=== PATIENT | female | born 1990 | race Caucasian/White ===

== ENCOUNTER → 2024-12-01 11:55 | Outpatient (REF) | payer BC, SELFPAY ==
[2024-12-01 14:32] LABS: % Basophils 0.2 % (0-2); % Eosinophils 0.8 % (0-6); % Immature Granulocytes 0.6 % (0-0.5); % Lymphocytes 19.1 % (20.5-51.1); % Monocytes 5.2 % (1.7-9.3); % Neutrophils 74.1 % (42.2-75.2); Absolute Eosinophils 0.1 10^3/uL (0-0.7); Absolute Immature Granulocytes 0.1 10^3/uL (0-0.05); Absolute Lymphocytes 1.9 10^3/uL (1.2-3.4); Absolute Monocytes 0.5 10^3/uL (0.1-0.6); Absolute Neutrophils 7.5 10^3/uL (1.4-6.5); Hemoglobin 11.2 g/dL (12.0-16.0); Mean Corp Hgb Conc. 32.9 g/dL (33.0-37.0); Mean Corpuscular Hgb 30.5 pg (27.0-31.0); Mean Corpuscular Volume 92.6 fL (81.0-99.0); Mean Platelet Volume 10.1 fL (7.4-10.4); Nucleated Red Blood Cells % 0 %; Platelet Count 167 10^3/uL (130-400); Red Blood Cell Count 3.67 10^6/uL (4.20-5.40); White Blood Cell Count 10.2 10^3/uL (4.8-10.8)
[2024-12-01 15:13] LABS: 1 Hour after 50gm 82 mg/dl
== END ==
LOC: REG 11:55
PROVIDERS: ATTENDING PHYSICIAN Obstetrics & Gynecology; FAMILY PHYSICIAN Student in an Organized Health Care Education/Training Program
DX: Z34.93 Encounter for supervision of normal pregnancy, unspecified, third trimester (principal)
CPT/HCPCS: 36415; 82950; 85025; 86780

== ENCOUNTER 2025-02-23 07:06 | Inpatient (IN) | payer BC, SELFPAY ==
[2025-02-23 07:13] VITALS: BP 137/61; BMI 24.4
[2025-02-23 07:51] LABS: Hematocrit 32.3 % (37.0-47.0); Hemoglobin 10.9 g/dL (12.0-16.0); Mean Corp Hgb Conc. 33.7 g/dL (33.0-37.0); Mean Corpuscular Volume 86.1 fL (81.0-99.0); Platelet Count 150 10^3/uL (130-400); Red Cell Dist. Width 13.9 % (11.5-14.5)
[2025-02-23 09:52] LABS: Cord VBG B.E. - POC -2.1 mmol/L; Cord VBG HCO3 - POC 26 mmol/L; Cord VBG pCO2 - POC 58 mmHg; Cord VBG pH - POC 7.26; Cord VBG pO2 - POC < 18 mmHg
[2025-02-23] MEDS: TORADOL 15 MG IV ×3 (10:52→22:23)
[2025-02-23] MEDS: COLACE 100 MG PO (20:15)
[2025-02-23] MEDS: FLUSH (NSS) 2 FLUSH IV (22:25)
[2025-02-24] MEDS: TORADOL 15 MG IV (03:31)
[2025-02-24] MEDS: FLUSH (NSS) 3 FLUSH IV (03:33)
[2025-02-24 04:15] LABS: Hematocrit 28.6 % (37.0-47.0); Hemoglobin 9.6 g/dL (12.0-16.0); Mean Corp Hgb Conc. 33.6 g/dL (33.0-37.0); Mean Corpuscular Volume 86.1 fL (81.0-99.0); Platelet Count 145 10^3/uL (130-400); Red Cell Dist. Width 13.9 % (11.5-14.5)
--- NOTE | 2025-02-24 08:30 | W.PN.ANS.POP ---
Anesthesia Post Operative
- Anesthesia Post Op Note
Vital Signs Stable-See Nursing Note: Yes
Airway Patent: Yes
Adequate Pain Control: Yes
Change in Mental Status: No
Current Postoperative Nausea & Vomiting: No
Anesthesia Complications: No
General Anesthetic Recall: No
Unplanned Admission: No
Post Op Hydration Adequate: Yes
- -
Pt awake and alert with no anesthesia related c/o at time of post op visit.
[2025-02-24] MEDS: PRENATAL PLUS 1 TABLET PO (08:38)
[2025-02-24] MEDS: COLACE 100 MG PO ×2 (08:38→20:00)
[2025-02-24] MEDS: TYLENOL 650 MG PO ×3 (08:38→21:13)
[2025-02-24] MEDS: MOTRIN 600 MG PO ×3 (09:12→21:14)
[2025-02-25] MEDS: MOTRIN 600 MG PO ×4 (03:42→21:51)
[2025-02-25] MEDS: TYLENOL 650 MG PO ×4 (03:42→21:51)
[2025-02-25] MEDS: COLACE 100 MG PO ×2 (07:46→20:10)
[2025-02-25] MEDS: PRENATAL PLUS 1 TABLET PO (07:46)
[2025-02-25] MEDS: MYLICON 80 MG PO (07:56)
[2025-02-26] MEDS: TYLENOL 650 MG PO (05:32)
[2025-02-26] MEDS: MOTRIN 600 MG PO (05:32)
[2025-02-26] MEDS: PRENATAL PLUS 1 TABLET PO (08:12)
[2025-02-26] MEDS: COLACE 100 MG PO (08:12)
[2025-02-26 13:19] LABS: Syphilis/T. pallidum Ab Reflex Negative (Negative)
== END 2025-02-26 10:44 | disposition home or self-care (01) | DRG 788 ==
LOC: LDRP 07:06
PROVIDERS: Obstetrics & Gynecology; ADMITTING PHYSICIAN Obstetrics & Gynecology; FAMILY PHYSICIAN Student in an Organized Health Care Education/Training Program
PROC: 6A550ZT Pheresis of Cord Blood Stem Cells, Single (ICD-10-PCS; 2025-02-23)
PROC: 10D00Z1 Extraction of Products of Conception, Low, Open Approach (ICD-10-PCS; 2025-02-23)
DX: O34.211 Maternal care for low transverse scar from previous cesarean delivery (principal); Z3A.39 39 weeks gestation of pregnancy; Z37.0 Single live birth; O99.824 Streptococcus B carrier state complicating childbirth; J30.2 Other seasonal allergic rhinitis; K58.9 Irritable bowel syndrome, unspecified; O99.62 Diseases of the digestive system complicating childbirth; O99.52 Diseases of the respiratory system complicating childbirth; O90.81 Anemia of the puerperium; D64.9 Anemia, unspecified; Z88.1 Allergy status to other antibiotic agents; Z88.0 Allergy status to penicillin
CPT/HCPCS: 36415; 85027; 86780; 86850; 86900; 86901; 88307

== ENCOUNTER 2025-06-12 11:23 | Emergency (ER) | payer BC, SELFPAY ==
[2025-06-12 11:25] VITALS: BP 137/98
--- NOTE | 2025-06-12 11:47 | ED.MUSCINJ ---
HPI-Injury
General
Chief Complaint: Fall
Source: patient
Exam Limitations: none
Time Seen by Provider: 06/12/25 11:40
History of Present Illness-Injury
Initial Injury comments:
35-year-old female presents with swelling and headache. She fell down a flight of stairs hitting her head on the concrete floor. No loss conscious. No vomiting. She notes pain to where she hit her head as well as above but denies any significant
neck pain arm leg or back pain. She does not take any medications. She is currently breast-feeding her 3-month-old. No other complaints at this time.
Past History
Past History
ED Past Medical History: None
ED Past Surgical History: None
Patient has exhibited threatening behavior?: No
Social History
Tobacco: Non-smoker
Personal:
Living: with family
Employment: Employed
Phy Exam
Physical Exam
Physical Exam:
General: Well-appearing female in no acute respiratory distress
HEENT: Normal cephalic hematoma noted to the right posterior scalp. Pupils equal round reactive to light TMs normal
Heart: Regular rate and rhythm
Lungs: Clear no wheeze
Musculoskeletal exam: No obvious deformity to the arms or legs. The spine is nontender
Neurologic exam: Normal gait alert and oriented no facial asymmetry
Injury Course
Orders/Labs/Results
Orders:
Orders
06/12/25 11:46
CT Cervical Spine W/o Iv Contr Urgent
Comment:
Reason For Exam: fall
CT Head W/o Iv Contrast Urgent
Comment:
Reason For Exam: fall
MDM/Problems Addressed
Differential Diagnosis Includes:
Fall down steps head strike to the posterior head with significant headache. Consider skull fracture intracranial hemorrhage or neck injury. CT ordered of the head and
*Pulse Oximetry
SaO2: 98
Oxygen Mode of Delivery: Room air
Patient hypoxic: no
*Critical Care Note
Total Time (30-74mins, 75-104mins- exclusive of procedures): Not Applicable
Update Note
Update Note:
CT of head and cervical spine negative for acute intracranial abnormality or fracture. Patient reassured. Advised ice to the sore spot for the contusion. Concussion precautions given. Stable for discharge
ED Attending Note
-
Portions of this chart may have been created with voice recognition software.� Occasional wrong word or��sound alike� substitutions may have occurred due to the inherent limitations of voice recognition software.
Discharge Plan
Departure
Patient Disposition: Home (Routine Discharge)
Date of Disposition: 06/12/25
Time of Disposition: 13:29
Patient with high blood pressure during this ER visit?: No
Discharge Problem:
Contusion
Instructions: Concussion, Adult (DC)
Prescriptions:
No Action
vit-iron fum-folic ac [ Tablet] 28 mg iron- 800 mcg Tablet
1 tab PO DAILY
acetaminophen 325 mg Tablet
650 mg PO Q4HPRN PRN (Reason: mild pain) Qty: 0 0RF
ibuprofen 600 mg Tablet
600 mg PO Q6HPRN PRN (Reason: cramps) Qty: 0 0RF
Referrals:
Liban Bhatti DO [Family Provider, Surgical]
Activity Restrictions/Additional Instructions:
Rest. Use ibuprofen or Tylenol for pain. Ice to the sore spot. Return if worse otherwise follow-up with your doctor
Interventions
Interventions:
*Risk Screen - Suicide Last Done: 06/12/25 11:25
*General Assessment Last Done: 06/12/25 11:55
*Neglect/Abuse Screening Last Done: 06/12/25 11:25
*ED- Fall Risk Assessment Last Done: 06/12/25 11:55
*ED COVID-19 Vaccine History Last Done: 06/12/25 11:55
*ED Influenza Vaccine History Last Done: 06/12/25 11:55
ED-Musculoskeletal Assessment Last Done: 06/12/25 11:55
ED- Neurological Assessment Last Done: 06/12/25 11:55
ED-Skin Assessment Last Done: 06/12/25 11:55
Discharge Date and Time
Print Language: [email or web address]
== END 2025-06-12 13:38 | disposition home or self-care (01) ==
LOC: EMR 11:23
PROVIDERS: EMERGENCY PHYSICIAN Emergency Medicine; FAMILY PHYSICIAN Surgery
DX: S00.03XA Contusion of scalp, initial encounter (principal); W10.9XXA Fall (on) (from) unspecified stairs and steps, initial encounter
CPT/HCPCS: 99284; 70450; 72125